=== PATIENT | female | born 1955 | race Caucasian/White ===

== ENCOUNTER 2019-05-30 14:49 | Outpatient (CLI) | payer OTHER, SELFPAY ==
--- NOTE | ~2019-05-30 | MM_ITS ---
EXAMINATION: MM screening [facility] BI w guy HISTORY: Screening mammogram TECHNIQUE: Craniocaudal and mediolateral oblique 3-D tomosynthesis images were obtained and synthetic 2-D images were generated. CAD analysis was submitted and interpreted. COMPARISON: 11/05/2015, 03/29/2014 BREAST PARENCHYMAL COMPOSITION: The breasts are heterogeneously dense, which may obscure small masses . FINDINGS: RIGHT BREAST: There is no evidence of suspicious mass, calcification, or architectural distortion to suggest malignancy. There has been no significant interval change. LEFT BREAST: There are grouped indeterminate calcifications in the posterior third of the upper outer quadrant of the breast 13 cm from the nipple. IMPRESSION: 1. Indeterminate left breast calcifications. 2. Magnification views are recommended. BI-RADS Category 0: Incomplete: Needs additional imaging evaluation. Reviewed, dictated and finalized at location A. PULLER
== END 2019-05-30 14:50 | disposition home or self-care (01) ==
LOC: ANHIMG 14:53
PROVIDERS: PCP Internal Medicine; Visit Provider Internal Medicine
DX: Z12.31 Encounter for screening mammogram for malignant neoplasm of breast (principal); R92.8 Other abnormal and inconclusive findings on diagnostic imaging of breast
CPT/HCPCS: 77063; 77067

== ENCOUNTER 2019-06-15 10:36 | Outpatient (CLI) | payer OTHER, SELFPAY ==
[2019-06-15 11:16] LABS: Alanine Aminotransferase 48 U/L (4-35); Albumin Level 4.1 g/dL (3.5-5.1); Alkaline Phosphatase 77 U/L (38-126); Aspartate Amino Transferase 42 U/L (14-36); Bilirubin,Total 0.4 mg/dL (0.2-1.3); Blood Urea Nitrogen 16 mg/dL (7-17); Carbon Dioxide 28 mmol/L (22-30); Chloride 102 mmol/L (98-107); Cholesterol 149 mg/dL (0-200); Estimated Glomerular Filt Rate > 60; Glucose 200 mg/dL (65-105); HDL Direct 45 mg/dL; Potassium 4.3 mmol/L (3.4-5.0); Sodium 137 mmol/L (137-145); Triglycerides 138 mg/dL (<150)
[2019-06-15 11:29] LABS: LDL Cholesterol Direct 105 mg/dL
[2019-06-15 14:02] LABS: Hemoglobin A1C 8.8 % (<5.7)
== END 2019-06-15 10:37 | disposition home or self-care (01) ==
PROVIDERS: PCP Internal Medicine; Visit Provider Nurse Practitioner
DX: E78.5 Hyperlipidemia, unspecified (principal); E11.9 Type 2 diabetes mellitus without complications
CPT/HCPCS: 36415; 80053; 80061; 83036

== ENCOUNTER 2019-06-20 12:33 | Outpatient (CLI) | payer OTHER, SELFPAY ==
--- NOTE | ~2019-06-20 | MM_ITS ---
EXAMINATION: MM diagnostic mammo unilat LT HISTORY: Indeterminate left breast calcifications on screening mammogram TECHNIQUE: Additional images of the left breast were performed. CAD analysis was submitted and interp reted. COMPARISON: 05/30/2019, 11/05/2015, 03/29/2014 FINDINGS: Coarse heterogeneous calcifications in the posterior third of the upper outer quadrant of t he breast at the 1:00 location 13 cm from the nipple. IMPRESSION: 1. Suspicious left breast calcifications. 2. Stereotactic biopsy is recommended. BI-RADS category 4, suspicious findings. Reviewed, dictated and finalized at location A.
== END 2019-06-20 12:34 | disposition home or self-care (01) ==
LOC: ANHIMG 12:35
PROVIDERS: PCP Internal Medicine; Visit Provider Internal Medicine
DX: R92.8 Other abnormal and inconclusive findings on diagnostic imaging of breast (principal)
CPT/HCPCS: 77065

== ENCOUNTER 2019-06-26 10:13 | Outpatient (CLI) | payer OTHER, SELFPAY ==
--- NOTE | ~2019-06-26 | MM_ITS ---
MM stereotactic bx LT, MM post biopsy invasive LT, MM stereotactic specimen LT EXAMINATION: MM stereotactic bx LT, MM post biopsy invasive LT, MM stereotactic specimen LT INDICATION: Abnormal calcifications in the left breast. Stereotactic core biopsy is requested evalua te for malignancy.] TECHNIQUE AND FINDINGS: The risks and potential benefits of the procedure were discussed with the patient and written informe d consent was obtained. The patient was placed in the prone position clustered at the table with the left breast in craniocaudal compression, and the area of interest was localized and targeted utilizi ng digital imaging with stereotaxis. After sterile preparation of the skin, 1% lidocaine was utilized for local anesthesia at the skin pun cture site and 1% lidocaine with epinephrine was utilized for deeper local anesthesia/is about the bi opsy site. A 9G Tapomat vacuum assisted biopsy needle was advanced to the level of the calcification o f interest from a cephalad approach utilizing stereotactic guidance and a total of 6 tissue core biop sies were obtained. A specimen radiograph demonstrates that the calcifications of interest are included within the tissue cores. A tissue marker clip was then placed at the biopsy site. The needle was removed and hemosta sis was achieved. The patient tolerated the procedure well and there is no evidence of significant i mmediate complication. The patient was given verbal as well as written postprocedural instructions p rior to discharge from the department. Tissue cores were submitted to surgical pathology for histolo gic analysis. A 2-view left unilateral digital mammogram was obtained post procedure and this demonstrates that the tissue marker clip is in expected position.] IMPRESSION: 1. Successful stereotactic biopsy of calcifications in the upper outer quadrant of the left breast, followed by tissue marker clip placement. Please refer to pathology report for histologic analysis. Reviewed, dictated and finalized at location A. IMPRESSION: 1. Successful stereotactic biopsy of calcifications in the upper outer quadran t of the left breast, followed by tissue marker clip placement. Please refer t o pathology report for histologic analysis. IMPRESSION: 1. Successful stereotactic biopsy of calcifications in the upper outer quadran t of the left breast, followed by tissue marker clip placement. Please refer t o pathology report for histologic analysis.
== END 2019-06-26 10:14 | disposition home or self-care (01) ==
PROVIDERS: PCP Internal Medicine; Visit Provider Internal Medicine
DX: R92.8 Other abnormal and inconclusive findings on diagnostic imaging of breast (principal); D24.2 Benign neoplasm of left breast
CPT/HCPCS: 19081; 88305; A4648

== ENCOUNTER 2019-10-16 10:10 | Outpatient (CLI) | payer OTHER, SELFPAY ==
[2019-10-16 10:50] LABS: Basophils Absolute Auto 0.1 K/mm3 (0.0-0.1); Basophils Percent Auto 0.6 % (0.2-1.2); Eosinophils Absolute Auto 0.1 K/mm3 (0-0.3); Eosinophils Percent Auto 1.3 % (0-4.4); Hematocrit 34.5 % (37.0-47.0); Hemoglobin 10.7 g/dL (12.0-15.0); Immature Granulocyte Absolute 0.04 K/mm3 (0.00-0.031); Immature Granulocyte Percent A 0.5 % (0-0.5); Lymphocytes Absolute Auto 2.04 K/mm3 (0.9-3.2); Lymphocytes Percent Auto 23.6 % (18.3-44.2); Mean Corpuscular Hemoglobin 25.1 pg (26-34); Mean Corpuscular Volume 80.8 fl (80-100); Mean Platelet Volume 10.4 fl (7.4-10.4); Monocytes Absolute Auto 0.5 K/mm3 (0.1-0.6); Monocytes Percent Auto 5.6 % (2.6-8.5); Neutrophils Absolute Auto 5.9 K/mm3 (1.3-6.7); Neutrophils Percent Auto 68.4 % (45.5-73.1); Platelet Count Result 224 k/mm3 (150-375); Red Blood Count 4.27 M/mm3 (4.2-5.4); Red Cell Distribution Width 13.6 % (11.5-14.5); White Blood Count 8.6 K/mm3 (4.5-10.0)
[2019-10-16 10:59] LABS: Hemoglobin A1C 8.3 % (<5.7)
[2019-10-16 11:06] LABS: Alanine Aminotransferase 33 U/L (4-35); Albumin Level 4.4 g/dL (3.5-5.1); Alkaline Phosphatase 79 U/L (38-126); Aspartate Amino Transferase 31 U/L (14-36); Bilirubin,Total 0.4 mg/dL (0.2-1.3); Blood Urea Nitrogen 18 mg/dL (7-17); Calcium 9.1 mg/dL (8.4-10.2); Carbon Dioxide 28 mmol/L (22-30); Chloride 100 mmol/L (98-107); Cholesterol 138 mg/dL (0-200); Estimated Glomerular Filt Rate 56; Glucose 149 mg/dL (65-105); HDL Direct 36 mg/dL; Potassium 4.3 mmol/L (3.4-5.0); Sodium 136 mmol/L (137-145); Triglycerides 156 mg/dL (<150)
[2019-10-16 11:17] LABS: LDL Cholesterol Direct 74 mg/dL
[2019-10-16 11:49] LABS: Creatinine Urine 133.2 mg/dL
[2019-10-16 12:05] LABS: Iron 59 ug/dL (37-170)
[2019-10-16 12:14] LABS: Percent Iron Saturation 14 % (20-50)
[2019-10-16 13:19] LABS: MALB Creatinine Ratio < 4.5 mg/g (0-30); Microalbumin Urine Random < 6.0 mg/L (0-16.7)
== END 2019-10-16 10:11 | disposition home or self-care (01) ==
LOC: ANHLAB 10:12
PROVIDERS: PCP Internal Medicine; Visit Provider Internal Medicine
DX: D50.9 Iron deficiency anemia, unspecified (principal); I10 Essential (primary) hypertension; E78.5 Hyperlipidemia, unspecified; E11.9 Type 2 diabetes mellitus without complications; Z79.899 Other long term (current) drug therapy
CPT/HCPCS: 36415; 80053; 80061; 82043; 83036; 83540; 83550; 85025

== ENCOUNTER 2020-02-14 12:40 | Outpatient (RCR) | payer OTHER, SELFPAY | END 2020-02-14 23:59 | disposition home or self-care (01) | LOC: ANHAUDIO 12:40 | PROVIDERS: PCP Internal Medicine; Visit Provider Internal Medicine | DX: Z46.1 Encounter for fitting and adjustment of hearing aid (principal) | CPT/HCPCS: V5014 ==

== ENCOUNTER 2020-02-17 08:21 | Outpatient (CLI) | payer OTHER, SELFPAY ==
[2020-02-17 09:04] LABS: Alanine Aminotransferase 29 U/L (4-35); Albumin Level 4.1 g/dL (3.5-5.1); Alkaline Phosphatase 78 U/L (38-126); Anion Gap 8 mmol/L (8-16); Aspartate Amino Transferase 27 U/L (14-36); Bilirubin,Total 0.4 mg/dL (0.2-1.3); Blood Urea Nitrogen 15 mg/dL (7-17); Calcium 9.1 mg/dL (8.4-10.2); Carbon Dioxide 33 mmol/L (22-30); Chloride 100 mmol/L (98-107); Cholesterol 134 mg/dL (0-200); Estimated Glomerular Filt Rate > 60; Glucose 137 mg/dL (65-105); HDL Direct 39 mg/dL; Potassium 4.1 mmol/L (3.4-5.0); Sodium 141 mmol/L (137-145); Triglycerides 171 mg/dL (<150)
[2020-02-17 09:15] LABS: LDL Cholesterol Direct 67 mg/dL
[2020-02-17 09:30] LABS: Hemoglobin A1C 7.2 % (<5.7)
== END 2020-02-17 08:22 | disposition home or self-care (01) ==
PROVIDERS: PCP Internal Medicine; Visit Provider Nurse Practitioner
DX: E78.5 Hyperlipidemia, unspecified (principal); E11.9 Type 2 diabetes mellitus without complications; Z79.84 Long term (current) use of oral hypoglycemic drugs
CPT/HCPCS: 36415; 80053; 80061; 83036

== ENCOUNTER 2020-03-26 09:34 | Outpatient (CLI) | payer OTHER, SELFPAY ==
--- NOTE | ~2020-03-26 | XR_ITS ---
EXAMINATION: XR tibia fibula RT 2V DATE: 03/26/2020 10:10 INDICATION: Right lower leg pain. TECHNIQUE: Anteroposterior and lateral views of the right tibia and fibula were obtained. COMPARISON: 12/15/2016 FINDINGS: Alignment is normal. No fracture. Mild to moderate tricompartmental osteoarthritis at the right knee with medial compartment predominance on prior dedicated right knee radiographs. Normal joint space at the right ankle and hindfoot. No cortical erosions or periosteal reaction. Soft tissues are unremark able. IMPRESSION: 1. Mild to moderate tricompartmental osteoarthritis at the right knee. Otherwise unremarkable right t ibia/fibular radiographs. Reviewed, dictated and finalized at location B. T DECORATOR IMPRESSION: 1. Mild to moderate tricompartmental osteoarthritis at the right knee. Otherwis e unremarkable right tibia/fibular radiographs.
[2020-03-26 10:11] LABS: Hemoglobin 10.3 g/dL (12.0-15.0)
== END 2020-03-26 09:35 | disposition home or self-care (01) ==
PROVIDERS: PCP Internal Medicine; Visit Provider Internal Medicine
DX: M79.606 Pain in leg, unspecified (principal); D64.9 Anemia, unspecified; R53.83 Other fatigue; M17.11 Unilateral primary osteoarthritis, right knee
CPT/HCPCS: 36415; 73590; 84443; 85014; 85018

== ENCOUNTER 2020-09-02 12:42 | Outpatient (CLI) | payer OTHER, SELFPAY ==
[2020-09-02 13:24] LABS: Hemoglobin 11.1 g/dL (12.0-15.0)
[2020-09-02 13:34] LABS: Hemoglobin A1C 9.5 % (<5.7)
[2020-09-02 13:45] LABS: Alanine Aminotransferase 42 U/L (4-35); Albumin Level 4.3 g/dL (3.5-5.1); Alkaline Phosphatase 79 U/L (38-126); Anion Gap 8 mmol/L (8-16); Aspartate Amino Transferase 43 U/L (14-36); Bilirubin,Total 0.2 mg/dL (0.2-1.3); Blood Urea Nitrogen 17 mg/dL (7-17); Calcium 9.1 mg/dL (8.4-10.2); Carbon Dioxide 27 mmol/L (22-30); Chloride 102 mmol/L (98-107); Estimated Glomerular Filt Rate 56; Glucose 300 mg/dL (65-105); Potassium 4.3 mmol/L (3.4-5.0); Sodium 137 mmol/L (137-145)
[2020-09-02 14:54] LABS: Iron 48 ug/dL (37-170)
[2020-09-02 15:03] LABS: Percent Iron Saturation 12 % (20-50)
== END 2020-09-02 12:43 | disposition home or self-care (01) ==
PROVIDERS: PCP Internal Medicine; Visit Provider Internal Medicine
DX: E11.9 Type 2 diabetes mellitus without complications (principal); I10 Essential (primary) hypertension; D50.9 Iron deficiency anemia, unspecified; D64.9 Anemia, unspecified
CPT/HCPCS: 36415; 80053; 82728; 83036; 83540; 83550; 85014; 85018

== ENCOUNTER 2020-10-07 13:53 | Outpatient (CLI) | payer OTHER, SELFPAY | END 2020-10-07 13:54 | disposition home or self-care (01) | LOC: ANHAUDASC 13:53 | PROVIDERS: PCP Internal Medicine; Visit Provider Nurse Practitioner | DX: H90.3 Sensorineural hearing loss, bilateral (principal) | CPT/HCPCS: 92557; 92567; 92593 ==

== ENCOUNTER 2020-11-12 16:10 | Outpatient (CLI) | payer OTHER, SELFPAY ==
[2020-11-12 17:12] LABS: Hematocrit 38.7 % (37.0-47.0); Hemoglobin 11.7 g/dL (12.0-15.0)
[2020-11-12 18:47] LABS: Iron 48 ug/dL (37-170)
[2020-11-12 18:56] LABS: Percent Iron Saturation 12 % (20-50)
== END 2020-11-12 16:11 | disposition home or self-care (01) ==
LOC: ANHLAB 16:12
PROVIDERS: PCP Internal Medicine; Visit Provider Nurse Practitioner
DX: D50.9 Iron deficiency anemia, unspecified (principal)
CPT/HCPCS: 36415; 83540; 83550; 85014; 85018

== ENCOUNTER 2020-12-24 13:37 | Outpatient (CLI) | payer OTHER, SELFPAY ==
--- NOTE | ~2020-12-24 | CT_ITS ---
EXAMINATION: CT sinus wo con DATE: 12/24/2020 13:57 INDICATION: Acute sinusitis, unspecified TECHNIQUE: Computed tomography (CT) of the paranasal sinuses was performed without intravenous contra st. The dose-length product (DLP) was 276.23 mGy-cm. Iterative reconstruction was used. COMPARISON: 06/10/2017 FINDINGS: There is normal development and pneumatization of the paranasal sinuses. The frontal, sphen oid, ethmoid, and maxillary sinuses are clear. The bilateral ostiomeatal complexes are patent. Visual ized soft tissues are unremarkable. The nasal septum is midline. IMPRESSION: 1. Unremarkable paranasal sinuses. Reviewed, dictated and finalized at location A.
== END 2020-12-24 13:38 | disposition home or self-care (01) ==
PROVIDERS: PCP Internal Medicine; Visit Provider Otolaryngology
DX: J01.90 Acute sinusitis, unspecified (principal)
CPT/HCPCS: 70486

== ENCOUNTER 2021-01-27 10:15 | Outpatient (CLI) | payer OTHER, SELFPAY ==
[2021-01-27 11:10] LABS: Hemoglobin A1C 7.4 % (<5.7)
[2021-01-27 11:16] LABS: Alanine Aminotransferase 24 U/L (4-35); Albumin Level 4.5 g/dL (3.5-5.1); Alkaline Phosphatase 65 U/L (38-126); Anion Gap 8 mmol/L (8-16); Aspartate Amino Transferase 23 U/L (14-36); Bilirubin,Total 0.5 mg/dL (0.2-1.3); Blood Urea Nitrogen 26 mg/dL (7-17); Calcium 9.5 mg/dL (8.4-10.2); Carbon Dioxide 30 mmol/L (22-30); Chloride 102 mmol/L (98-107); Cholesterol 169 mg/dL (0-200); Estimated Glomerular Filt Rate 50; Glucose 145 mg/dL (65-110); HDL Direct 43 mg/dL; Potassium 4.6 mmol/L (3.4-5.0); Sodium 140 mmol/L (137-145); Triglycerides 200 mg/dL (<150)
[2021-01-27 11:27] LABS: LDL Cholesterol Direct 91 mg/dL
== END 2021-01-27 10:16 | disposition home or self-care (01) ==
PROVIDERS: PCP Internal Medicine; Visit Provider Nurse Practitioner
DX: E78.5 Hyperlipidemia, unspecified (principal); E11.9 Type 2 diabetes mellitus without complications
CPT/HCPCS: 36415; 80053; 80061; 83036

== ENCOUNTER 2021-02-03 14:20 | Outpatient (CLI) | payer OTHER, SELFPAY ==
--- NOTE | ~2021-02-03 | XR_ITS ---
XR knee RT 3V 02/03/2021 14:45 Indication: Right knee pain Procedure: 3 views right knee Comparison: 12/15/2016 Findings: There is moderate tricompartment osteoarthritis of the right knee. No fracture, subluxation or dislocation. No significant joint effusion. Impression: 1: Moderate osteoarthritis of the right knee. Reviewed, dictated and finalized at location A. Impression: 1: Moderate osteoarthritis of the right knee.
--- NOTE | ~2021-02-03 | XR_ITS ---
XR knee LT 3V 02/03/2021 14:45 Indication: Left knee pain Procedure: 3 views left knee Comparison: 05/10/2015 Findings: There is mild tricompartment osteoarthritis of the left knee. No fracture, subluxation or d islocation. No significant joint effusion. Impression: 1: Mild osteoarthritis of the left knee. Reviewed, dictated and finalized at location A. Impression: 1: Mild osteoarthritis of the left knee.
== END 2021-02-03 14:21 | disposition home or self-care (01) ==
LOC: ANHIMG 14:20
PROVIDERS: PCP Internal Medicine; Visit Provider Nurse Practitioner
DX: S89.92XA Unspecified injury of left lower leg, initial encounter (principal); M17.0 Bilateral primary osteoarthritis of knee
CPT/HCPCS: 73562

== ENCOUNTER 2021-02-10 14:27 | Outpatient (RCR) | payer OTHER, SELFPAY | END 2021-05-11 23:59 | disposition home or self-care (01) | LOC: ANHAUDASC 14:27 | PROVIDERS: PCP Internal Medicine; Visit Provider Internal Medicine | DX: Z46.1 Encounter for fitting and adjustment of hearing aid (principal) | CPT/HCPCS: V5014 ==

== ENCOUNTER 2021-03-19 08:13 | Outpatient (CLI) | payer OTHER, SELFPAY ==
--- NOTE | ~2021-03-19 | MM_ITS ---
EXAMINATION: MM screening [facility] BI w guy HISTORY: Screening TECHNIQUE: Craniocaudal and mediolateral oblique 3-D tomosynthesis images were obtained and synthetic 2-D images were generated. CAD analysis was submitted and interpreted. COMPARISON: Comparison to multiple prior studies sequentially, with oldest reviewed study dated 11/04. BREAST PARENCHYMAL COMPOSITION: . The breasts are heterogenously dense, which may obscure small rigo s FINDINGS: There is no evidence of suspicious mass, calcification, or architectural distortion to sugg est malignancy in either breast. There has been no suspicious interval change. IMPRESSION: 1. No mammographic evidence of malignancy. 2. Recommend routine screening mammography in one year. BI-RADS Category 1: Negative Reviewed, dictated and finalized at location A. E SHOE REBUILDER
== END 2021-03-19 08:14 | disposition home or self-care (01) ==
LOC: ANHIMG 08:14
PROVIDERS: PCP Internal Medicine; Visit Provider Nurse Practitioner
DX: Z12.31 Encounter for screening mammogram for malignant neoplasm of breast (principal)
CPT/HCPCS: 77063; 77067

== ENCOUNTER → 2021-04-28 00:50 | Outpatient (CLI) | payer OTHER, SELFPAY ==
[2021-04-28 15:59] LABS: Influenza A QL RT-PCR Negative (Negative); Influenza B QL RT-PCR Negative (Negative); SARS-CoV-2 RNA PCR Negative
== END ==
PROVIDERS: PCP Internal Medicine; Visit Provider Nurse Practitioner
DX: R68.89 Other general symptoms and signs (principal); Z20.822 Contact with and (suspected) exposure to COVID-19
CPT/HCPCS: 87502; C9803; U0003; U0005

== ENCOUNTER 2021-09-26 09:37 | Outpatient (CLI) | payer OTHER, SELFPAY ==
[2021-09-26 09:51] LABS: Hematocrit 40.5 % (37.0-47.0); Hemoglobin 12.7 g/dL (12.0-15.0); Mean Corpuscular HGB Conc 31.4 g/dl (32-36); Mean Corpuscular Hemoglobin 26.5 pg (26-34); Mean Corpuscular Volume 84.6 fl (80-100); Mean Platelet Volume 10.3 fl (7.4-10.4); Platelet Count Result 223 k/mm3 (150-375); Red Blood Count 4.79 M/mm3 (4.2-5.4); Red Cell Distribution Width 14.4 % (11.5-14.5); White Blood Count 9.7 K/mm3 (4.5-10.0)
[2021-09-26 10:06] LABS: Alanine Aminotransferase 33 U/L (6-35); Albumin Level 4.6 g/dL (3.5-5.1); Alkaline Phosphatase 71 U/L (38-126); Anion Gap 6 mmol/L (8-16); Aspartate Amino Transferase 25 U/L (14-36); Bilirubin,Total 0.6 mg/dL (0.2-1.3); Blood Urea Nitrogen 25 mg/dL (7-17); Calcium 9.2 mg/dL (8.4-10.2); Carbon Dioxide 31 mmol/L (22-30); Chloride 103 mmol/L (98-107); Cholesterol 176 mg/dL (0-200); Estimated Glomerular Filt Rate 56; Glucose 164 mg/dL (65-110); HDL Direct 42 mg/dL; Potassium 4.7 mmol/L (3.4-5.0); Sodium 140 mmol/L (137-145); Triglycerides 211 mg/dL (<150)
[2021-09-26 10:08] LABS: Hemoglobin A1C 7.4 % (<5.7)
[2021-09-26 10:17] LABS: LDL Cholesterol Direct 91 mg/dL
[2021-09-26 10:45] LABS: Iron 74 ug/dL (37-170); Percent Iron Saturation 19 % (20-50)
== END 2021-09-26 09:38 | disposition home or self-care (01) ==
LOC: ANHLAB 09:38
PROVIDERS: PCP Internal Medicine; Visit Provider Nurse Practitioner
DX: E78.5 Hyperlipidemia, unspecified (principal); D64.9 Anemia, unspecified; E11.9 Type 2 diabetes mellitus without complications
CPT/HCPCS: 36415; 80053; 80061; 83036; 83540; 83550; 85027

== ENCOUNTER 2021-10-30 09:00 | Outpatient (RCR) | payer OTHER, SELFPAY | END 2022-01-13 23:59 | disposition home or self-care (01) | LOC: ANHAUDASC 09:00 | PROVIDERS: PCP Internal Medicine; Visit Provider Internal Medicine | DX: Z46.1 Encounter for fitting and adjustment of hearing aid (principal) | CPT/HCPCS: 99199; V5014 ==

== ENCOUNTER 2022-04-14 12:26 | Emergency (ER) | payer OTHER, SELFPAY ==
[2022-04-14 12:41] VITALS: BP 107/55; PULSE 64; RESP 20; TEMP 36.2; O2SAT 98
--- NOTE | 2022-04-14 12:52 | ED.URI ---
HPI - URI/Sore Throat General Chief Complaint: Upper Respiratory Infection Stated Complaint: headache,cough,sorethroat Time Seen by Provider: 04/14/22 12:52 Source: patient Mode of arrival: ambulatory Limitations: no limitations History of Present Illness HPI Narrative: 66-year-old female presents with complaint sinus congesti/on pressure, postnasal drainage, dizziness for 6 days. Today began with dry cough. Called her PCP and was told to get a flu and COVID test. Afebrile. reports fatigue, no body aches. Denies nausea vomiting diarrhea. All systems reviewed and negative except as noted above. Related Data Home Medications Medication Instructions Recorded Confirmed fluticasone propionate 50 1 spray intranasal Q12H 04/11/19 04/14/22 mcg/actuation nasal spray,suspension (Flonase Allergy Relief) fexofenadine 180 mg tablet 180 mg PO DAILY 10/17/19 04/14/22 (Anastasia Allergy) dicyclomine 10 mg capsule 10 mg PO DAILY 09/03/20 04/14/22 dapagliflozin 10 mg tablet 10 mg PO DAILY 11/21/20 04/14/22 (Farxiga) naproxen sodium 220 mg capsule 220 mg PO BID PRN Pain 02/12/21 04/14/22 (Aleve) omeprazole 10 mg capsule,delayed 10 mg PO DAILY 08/04/21 04/14/22 release Allergies Allergy/AdvReac Type Severity Reaction Status Date / Time celecoxib Allergy Unknown unknown Verified 04/14/22 12:41 ciprofloxacin Allergy Unknown unknown Verified 04/14/22 12:41 codeine Allergy Unknown unknown Verified 04/14/22 12:41 Iodinated Contrast Media Allergy Unknown unknown Verified 04/14/22 12:41 iodine Allergy Unknown unknown Verified 04/14/22 12:41 latex Allergy Unknown unknown Verified 04/14/22 12:41 Sulfa (Sulfonamide Allergy Unknown unknown Verified 04/14/22 12:41 Antibiotics) Review of Systems Review of Systems: CONSTITUTIONAL: Denies fever, chills, or sweats. EYES: Denies visual changes, redness, or discharge. ENT: Report rhinorrhea, congestion, sinus congestion, dizziness. Denies sore throat, or otalgia. CARDIOVASCULAR: Denies chest pain, palpitations, or edema. RESPIRATORY: Denies cough or dyspnea. GASTROINTESTINAL: Denies abdominal pain, nausea, vomiting, or diarrhea. GENITOURINARY: Denies dysuria or hematuria. SKIN: Denies rash or itching. MUSCULOSKELETAL: Denies back pain, joint pain, or myalgia. NEUROLOGIC: Denies headache, numbness, or weakness. PSYCHIATRIC: Denies anxiety or depression. All other systems reviewed are negative, except as documented in HPI. PMFSH Past Medical History Medical History Acute sinusitis with symptoms > 10 days Degenerative arthritis of knee, bilateral Hemoglobin A1C between 7% and 9% indicating borderline diabetic control A1c = 7.4 on 01/27/21 Surgical History Surgical History H/O: hysterectomy History of cholecystectomy Family History Family History Mother Family history of malignant melanoma Family history of lung cancer Family history of malignant neoplasm of brain Hypertension Grandparent Family history of lung cancer Family history of malignant neoplasm of bone Family history of malignant neoplasm of breast Family history of congestive heart failure Hypertension Father Acute myocardial infarction Diabetes mellitus Hypertension Other Family history of coronary artery disease Social History Social History Smoking status: Never smoker Second hand tobacco smoke exposure: No Alcohol intake: never Substance use: never Gender identity (if verbalized by the patient): Female Comments At time of signature, agree with nursing past medical, surgical, social and family history. There is no relevant family history pertinent to the presenting complaint. Exam Narrative: GENERAL: This is a well-nourished, well-d
== END 2022-04-14 13:15 | disposition home or self-care (01) ==
PROVIDERS: Emergency Provider Nurse Practitioner Family; PCP Internal Medicine
DX: J01.90 Acute sinusitis, unspecified (principal); Z20.822 Contact with and (suspected) exposure to COVID-19; M17.0 Bilateral primary osteoarthritis of knee
CPT/HCPCS: 87426; 99213; C9803; G0463

== ENCOUNTER 2022-05-04 09:47 | Outpatient (CLI) | payer OTHER, SELFPAY ==
[2022-05-04 10:12] LABS: Hematocrit 40.2 % (37.0-47.0); Hemoglobin 12.9 g/dL (12.0-15.0)
[2022-05-04 10:19] LABS: Alanine Aminotransferase 33 U/L (6-35); Albumin Level 4.3 g/dL (3.5-5.1); Alkaline Phosphatase 73 U/L (38-126); Anion Gap 5 mmol/L (8-16); Aspartate Amino Transferase 23 U/L (14-36); Bilirubin,Total 0.6 mg/dL (0.2-1.3); Blood Urea Nitrogen 18 mg/dL (7-17); Calcium 9.1 mg/dL (8.4-10.2); Carbon Dioxide 29 mmol/L (22-30); Chloride 101 mmol/L (98-107); Cholesterol 155 mg/dL (0-200); Estimated Glomerular Filt Rate > 60; Glucose 155 mg/dL (65-110); HDL Direct 47 mg/dL; Potassium 4.2 mmol/L (3.4-5.0); Sodium 135 mmol/L (137-145); Triglycerides 188 mg/dL (<150)
[2022-05-04 10:23] LABS: Hemoglobin A1C 7.8 % (<5.7)
[2022-05-04 10:30] LABS: LDL Cholesterol Direct 68 mg/dL
[2022-05-04 11:11] LABS: Microalbumin Urine Random 7.3 mg/L (0-16.7)
[2022-05-04 11:14] LABS: Creatinine Urine 96.9 mg/dL; MALB Creatinine Ratio 7.5 mg/g (0-30)
== END 2022-05-04 09:48 | disposition home or self-care (01) ==
LOC: ANHLAB 09:49
PROVIDERS: PCP Internal Medicine; Visit Provider Internal Medicine
DX: E11.65 Type 2 diabetes mellitus with hyperglycemia (principal); I10 Essential (primary) hypertension; D64.9 Anemia, unspecified; E78.5 Hyperlipidemia, unspecified
CPT/HCPCS: 36415; 80053; 80061; 82043; 83036; 85014; 85018

== ENCOUNTER 2022-06-08 12:48 | Outpatient (RCR) | payer OTHER, SELFPAY | END 2022-06-08 23:59 | disposition home or self-care (01) | LOC: ANHAUDIO 12:48 | PROVIDERS: PCP Internal Medicine; Visit Provider Internal Medicine | DX: Z46.1 Encounter for fitting and adjustment of hearing aid (principal) | CPT/HCPCS: 92593 ==

== ENCOUNTER 2022-07-25 11:37 | Outpatient (CLI) | payer MEDICARE, MEDICAID, SELFPAY ==
--- NOTE | ~2022-07-25 | MM_ITS ---
EXAMINATION: MM screening [facility] BI w guy HISTORY: Screening mammogram TECHNIQUE: Craniocaudal and mediolateral oblique 3-D tomosynthesis images were obtained and synthetic 2-D images were generated. CAD analysis was submitted and interpreted. COMPARISON: 03/19/2021, 06/20/2019, 05/30/2019 BREAST PARENCHYMAL COMPOSITION: There are scattered areas of fibroglandular density. FINDINGS: Stable bilateral breast masses are considered benign given the lack of interval change. Als o noted are stable bilateral breast calcifications. No suspicious mass, calcification, or architectur al distortion are identified in either breast to suggest malignancy. There has been no suspicious int erval change. IMPRESSION: 1. No mammographic evidence of malignancy. 2. Recommend routine screening mammography in one year. BI-RADS Category 2: Benign finding(s). Reviewed, dictated and finalized at location A.
== END 2022-07-25 11:38 | disposition home or self-care (01) ==
LOC: ANHIMG 11:40
PROVIDERS: PCP Internal Medicine; Visit Provider Internal Medicine
DX: Z12.31 Encounter for screening mammogram for malignant neoplasm of breast (principal)
CPT/HCPCS: 77063; 77067

== ENCOUNTER 2022-09-30 09:39 | Outpatient (CLI) | payer MEDICARE, SELFPAY ==
[2022-09-30 10:22] LABS: Alanine Aminotransferase 29 U/L (6-35); Albumin Level 4.3 g/dL (3.5-5.1); Alkaline Phosphatase 86 U/L (38-126); Anion Gap 8 mmol/L (8-16); Aspartate Amino Transferase 22 U/L (14-36); Bilirubin,Total 0.6 mg/dL (0.2-1.3); Blood Urea Nitrogen 14 mg/dL (7-17); Calcium 8.4 mg/dL (8.4-10.2); Carbon Dioxide 30 mmol/L (22-30); Chloride 102 mmol/L (98-107); Estimated Glomerular Filt Rate > 60; Glucose 149 mg/dL (65-110); Potassium 3.7 mmol/L (3.4-5.0); Sodium 140 mmol/L (137-145)
[2022-09-30 10:34] LABS: Hemoglobin A1C 7.6 % (<5.7)
== END 2022-09-30 09:40 | disposition home or self-care (01) ==
LOC: ANHLAB 09:41
PROVIDERS: PCP Family Medicine; Visit Provider Nurse Practitioner
DX: E11.9 Type 2 diabetes mellitus without complications (principal); I10 Essential (primary) hypertension
CPT/HCPCS: 36415; 80053; 83036

== ENCOUNTER 2022-11-20 13:11 | Outpatient (CLI) | payer MEDICARE, SELFPAY ==
[2022-11-20 16:57] LABS: Appearance Urine Cloudy (Clear); Bacteria Urine None Seen /hpf; Bilirubin Urine Negative (Negative); Blood Urine 3+ (Negative); Color Urine Yellow (Yellow); Glucose Urine UA 3+ mg/dL (Negative); Ketones Urine Trace mg/dL (Negative); Leukocyte Esterase Ur 1+ LEU/UL (Negative); Nitrate Urine Negative (Negative); Non Pathogenic Casts 0-2; Protein Urine 1+ mg/dL (Negative); RBC Urine >100 /hpf (0-2); Specific Grav Ur 1.033 (1.001-1.035); Squamous Epithelial Cell Urine Occasional /hpf (Few); WBC Urine >100 /hpf; pH Urine 5.5 (5.0-9.0)
[2022-11-20 16:58] LABS: Add Urine Microscopic? YES
== END 2022-11-20 13:12 | disposition home or self-care (01) ==
PROVIDERS: PCP Family Medicine; Visit Provider Nurse Practitioner
DX: R30.0 Dysuria (principal)
CPT/HCPCS: 81001; 87086; 87088

== ENCOUNTER 2023-01-08 12:50 | Outpatient (CLI) | payer MEDICARE, SELFPAY ==
[2023-01-08 15:21] LABS: Appearance Urine Cloudy (Clear); Bacteria Urine None Seen /hpf; Bilirubin Urine Negative (Negative); Blood Urine 3+ (Negative); Color Urine Yellow (Yellow); Glucose Urine UA 3+ mg/dL (Negative); Ketones Urine Negative (Negative); Leukocyte Esterase Ur 2+ LEU/UL (Negative); Need Manual Microscopic Reviewed; Nitrate Urine Negative (Negative); Non Pathogenic Casts 0-2; Protein Urine 1+ mg/dL (Negative); RBC Urine >100 /hpf (0-2); Specific Grav Ur 1.034 (1.001-1.035); Squamous Epithelial Cell Urine None seen /hpf (Few); Urobilinogen Urine 0.2 mg/dL (<2.0); WBC Urine >100 /hpf
[2023-01-08 15:22] LABS: Add Urine Microscopic? YES
== END 2023-01-08 12:51 | disposition home or self-care (01) ==
LOC: ANHLAB 12:52
PROVIDERS: PCP Nurse Practitioner; Visit Provider Nurse Practitioner
DX: R39.9 Unspecified symptoms and signs involving the genitourinary system (principal)
CPT/HCPCS: 81001; 87086; 87088

== ENCOUNTER 2023-01-28 15:27 | Outpatient (NON) | payer MEDICARE, MEDICAID, SELFPAY | END 2023-01-28 15:28 | disposition home or self-care (01) | LOC: ANHLAB 15:28 | PROVIDERS: PCP Nurse Practitioner; Visit Provider Nurse Practitioner | DX: D23.4 Other benign neoplasm of skin of scalp and neck (principal) | CPT/HCPCS: 88305 ==

== ENCOUNTER 2023-03-29 14:00 | Outpatient (CLI) | payer MEDICARE, MEDICAID, SELFPAY ==
--- NOTE | ~2023-03-29 | CT_ITS ---
EXAMINATION: CT sinus wo con DATE: 03/29/2023 14:18 INDICATION: Chronic sinusitis TECHNIQUE: Computed tomography (CT) of the paranasal sinuses was performed without intravenous contra st. The dose-length product was 344.27 mGy-cm. Automated exposure control and iterative reconstructio n technique were employed. COMPARISON: CT dated 12/24/2020 FINDINGS: There is mucosal thickening of the left maxillary sinus with occlusion of the ostiomeatal u nit. No significant mucoperiosteal reaction. No nasal septal deviation. Right ostiomeatal unit is pat ent. Mastoids are pneumatized. IMPRESSION: 1. Moderate left maxillary sinusitis. Reviewed, dictated and finalized at location A. SCREEN PRINTER MACHINE
== END 2023-03-29 14:01 | disposition home or self-care (01) ==
PROVIDERS: PCP Nurse Practitioner; Visit Provider Otolaryngology
DX: J32.0 Chronic maxillary sinusitis (principal)
CPT/HCPCS: 70486

== ENCOUNTER 2023-06-02 11:19 | Outpatient (CLI) | payer MEDICARE, MEDICAID, SELFPAY ==
--- NOTE | 2023-06-02 11:35 | ECG_ITS ---
Measurements Intervals [place] Rate: 73 P: 6 [place]: 163 QRS: -24 QRSD: 97 T: -17 QT: 382 QTc: 422 Interpretive Statements SINUS RHYTHM VOLTAGE CRITERIA FOR LVH POSSIBLE ANTERIOR MYOCARDIAL INFARCTION [30 ms Q WAVE IN V3/V4, OR R < 0.2 mV IN V4], OF INDETERMINATE AGE ABNORMAL ECG NO PREVIOUS ECG AVAILABLE FOR COMPARISON Electronically Signed On 06-02-2023 16:27:32 MUSIC COMPOSER by Mati Yao M.D.
[2023-06-02 11:57] LABS: Hematocrit 41.8 % (37.0-47.0)
[2023-06-02 12:10] LABS: Anion Gap 7 mmol/L (8-16); Blood Urea Nitrogen 16 mg/dL (7-17); Calcium 9.3 mg/dL (8.4-10.2); Carbon Dioxide 25 mmol/L (22-30); Chloride 102 mmol/L (98-107); Estimated Glomerular Filt Rate 56; Glucose 329 mg/dL (65-110); Potassium 4.2 mmol/L (3.4-5.0); Sodium 134 mmol/L (137-145)
== END 2023-06-02 11:20 | disposition home or self-care (01) ==
LOC: ANHSURGERY 11:24
PROVIDERS: Anesthesiology; PCP Nurse Practitioner; Visit Provider Otolaryngology
DX: Z01.818 Encounter for other preprocedural examination (principal); D64.9 Anemia, unspecified; E11.9 Type 2 diabetes mellitus without complications; I10 Essential (primary) hypertension; R93.1 Abnormal findings on diagnostic imaging of heart and coronary circulation; R94.31 Abnormal electrocardiogram [ECG] [EKG]
CPT/HCPCS: 36415; 80048; 85014; 85018; 93005

== ENCOUNTER 2023-06-16 13:25 | Emergency (ER) | payer MEDICARE, SELFPAY ==
--- NOTE | 2023-06-16 13:41 | ED.CHESTPAIN ---
HPI - Chest Pain General Chief Complaint: Chest Pain Stated Complaint: chest pain Time Seen by Provider: 06/16/23 13:52 Mode of arrival: ambulatory Limitations: no limitations History of Present Illness HPI narrative: 67-year-old female presents with concern for left-sided chest pain that radiates to the left arm and shoulder blade, originates under the left breast. She reports as a 5/10 in his been occurring for proximally 5 days. She denies any shortness of breath. She reports swelling in her ankles, however she says that is normal. She reports she is waiting for an appointment for a stress test because she had in my preop EKG last week that showed an [place] of indeterminate age. She has not had a stress test yet. She does have a history of mitral valve prolapse which she gets that she has occasional chest pain from. MD complaint: chest pain Related Data Home Medications Medication Instructions Recorded Confirmed fexofenadine 180 mg tablet 180 mg PO DAILY 10/17/19 06/16/23 (Anastasia Allergy) dicyclomine 10 mg capsule 10 mg PO BID 09/03/20 06/16/23 atenolol 50 mg tablet 50 mg PO BID 05/25/23 06/16/23 cyanocobalamin (vitamin B-12) 1,000 mcg PO DAILY 05/25/23 06/16/23 1,000 mcg capsule dapagliflozin propanediol 10 mg 10 mg PO QAM 05/25/23 06/16/23 tablet (Farxiga) dexlansoprazole 60 mg 60 mg PO DAILY 05/25/23 06/16/23 capsule,biphase delayed release fluticasone propionate 50 2 spray intranasal BID 05/25/23 06/16/23 mcg/actuation nasal spray,suspension guaifenesin 1,200 mg tablet, 1,200 mg PO BID 05/25/23 06/16/23 extended release 12 hr (Mucinex) ibuprofen 200 mg tablet (Advil) 200 mg PO QAM PRN Pain 05/25/23 06/16/23 meclizine 25 mg tablet 25 mg PO BID PRN Dizziness 05/25/23 06/16/23 semaglutide 7 mg tablet (Rybelsus) 7 mg PO QAM 05/25/23 06/16/23 Allergies Allergy/AdvReac Type Severity Reaction Status Date / Time Iodinated Contrast Media Allergy Unknown Hives Verified 06/16/23 14:04 iodine Allergy Unknown Hives Verified 06/16/23 14:04 celecoxib AdvReac Unknown STOMACH Verified 06/16/23 14:04 PAIN ciprofloxacin AdvReac Unknown STOMACH Verified 06/16/23 14:04 PAIN codeine AdvReac Unknown NAUSEA/VOMI Verified 06/16/23 14:04 TING latex AdvReac Unknown SKIN Verified 06/16/23 14:04 REDNESS/IRRITATION Sulfa (Sulfonamide AdvReac Unknown STOMACH Verified 06/16/23 14:04 Antibiotics) PAIN Review of Systems Review of Systems: CONSTITUTIONAL: Denies malaise, chills, sweats, or fever. CARDIOVASCULAR: Reports left chest pain. Denies palpitations. Reports bilateral lower extremity edema. RESPIRATORY: Denies cough or dyspnea. GASTROINTESTINAL: Denies abdominal pain, nausea, vomiting NEUROLOGIC: Denies numbness, weakness All systems reviewed & are unremarkable except as noted in HPI and below PMFSH Past Medical History Medical History Acute sinusitis with symptoms > 10 days Degenerative arthritis of knee, bilateral Diabetes Essential (primary) hypertension Gastroesophageal reflux disease Hemoglobin A1C between 7% and 9% indicating borderline diabetic control A1c = 7.4 on 01/27/21 Hyperlipidemia, unspecified Iron deficiency anemia Lumbar degenerative disc disease Obstructive sleep apnea (adult) (pediatric) Reactive airway disease without complication Surgical History Surgical History H/O: hysterectomy History of cholecystectomy Family History Family History Mother Family history of malignant melanoma Family history of lung cancer Family history of malignant neoplasm of brain Hypertension Grandparent Family history of lung cancer Family history of malignant neoplasm of bone Family history of malignant neoplasm of breast Family history of congestive heart failure Hypertension Father Acute myocardial infarct
--- NOTE | 2023-06-16 13:42 | ECG_ITS ---
Measurements Intervals [place] Rate: 63 P: 13 [place]: 175 QRS: -23 QRSD: 92 T: -19 QT: 409 QTc: 420 Interpretive Statements SINUS RHYTHM WITH SINUS ARRHYTHMIA DELAYED PRECORDIAL R/S TRANSITION LEFT VENTRICULAR HYPERTROPHY BORDERLINE ST-T WAVE ABNORMALITY- ANTEROLAT/INF LEADS BORDERLINE ECG COMPARED TO ECG 06/02/2023 11:46:38 SINUS ARRHYTHMIA NOW PRESENT Electronically Signed On 06-16-2023 14:12:30 FILL TECHNICIAN by Gaurang Koch D.O.
[2023-06-16 13:50] VITALS: BP 112/70; PULSE 64; RESP 20; TEMP 36.7; O2SAT 99
== END 2023-06-16 14:06 | disposition short-term general hospital (02) ==
PROVIDERS: Emergency Provider Nurse Practitioner; PCP Nurse Practitioner
DX: R07.9 Chest pain, unspecified (principal); E11.9 Type 2 diabetes mellitus without complications; I10 Essential (primary) hypertension; K21.9 Gastro-esophageal reflux disease without esophagitis; E78.5 Hyperlipidemia, unspecified; D50.9 Iron deficiency anemia, unspecified; M51.36 Other intervertebral disc degeneration, lumbar region; J45.909 Unspecified asthma, uncomplicated; M17.0 Bilateral primary osteoarthritis of knee; I25.2 Old myocardial infarction
CPT/HCPCS: 93005; 99213; G0463

== ENCOUNTER 2023-06-16 14:30 | Emergency (ER) | payer MEDICARE, SELFPAY ==
--- NOTE | ~2023-06-16 | XR_ITS ---
EXAMINATION: XR chest 2V DATE: 06/16/2023 15:05 INDICATION: Left chest pain. TECHNIQUE: Frontal and lateral views of the chest were obtained. COMPARISON: Chest 2 views 05/10/15 FINDINGS: There is no pneumonia, pleural effusion, or pneumothorax. The heart size is normal. Surgica l clips in the right upper quadrant are likely from cholecystectomy. IMPRESSION: 1. No acute cardiopulmonary disease. Reviewed, dictated and finalized at location E. L PAINTER
--- NOTE | 2023-06-16 14:32 | ECG_ITS ---
Measurements Intervals [place] Rate: 65 P: 31 [place]: 168 QRS: -21 QRSD: 84 T: -16 QT: 394 QTc: 410 Interpretive Statements SINUS RHYTHM DELAYED PRECORDIAL R/S TRANSITION LOW QRS VOLTAGE IN PRECORDIAL LEADS VOLTAGE CRITERIA FOR LVH NONSPECIFIC ST & T-WAVE ABNORMALITY- ANT/INF LEADS BASELINE ARTIFACT- I, III, AVR, AVL, AVF BORDERLINE ECG COMPARED TO ECG 06/16/2023 13:49:19 NO SIGNIFICANT CHANGES Electronically Signed On 06-16-2023 14:44:25 PELLETIZER OPERATOR by Gaurang Koch D.O.
[2023-06-16 14:38] VITALS: BP 128/75; PULSE 62; RESP 16; TEMP 36.8; O2SAT 97
--- NOTE | 2023-06-16 14:38 | ED.CHESTPAIN ---
HPI - Chest Pain General Chief Complaint: Chest Pain <Bronwyn Trujillo PA-C - Last Filed: 06/18/23 20:23> Stated Complaint: chest pain <Bronwyn Trujillo PA-C - Last Filed: 06/18/23 20:23> Time Seen by Provider: 06/16/23 14:38 <Bronwyn Trujillo PA-C - Last Filed: 06/18/23 20:23> Focused HPI: This is a 67 year old female that presents to the ER for chest pain. Reports the pain is sharp and pinching. Also reports heaviness. Reports the pain is constant. Reports a cough and swelling in her feet. She does have a stress test scheduled for next Wednesday. Denies fever, shortness of breath. GENERAL: Well-appearing, well-nourished, and in no acute distress. HEAD: Normocephalic, atraumatic. CHEST: Clear to auscultation. ?No respiratory distress. HEART: Regular rate and rhythm.? NEURO: ?Alert and oriented x3. Patient screened in triage and initial orders placed.? ?Additional care and disposition to be based upon?diagnostic testing and treatment. <Bronwyn Trujillo PA-C - Last Filed: 06/18/23 20:23> Focused HPI: This is a 67 year old female that presents to the ER for chest pain that has been ongoing for 5 days. Reports the pain is sharp and pinching. Also reports heaviness. Reports the pain is constant. Reports a cough and swelling in her feet. She does have a stress test scheduled for next Wednesday. Denies fever, chills, shortness of breath, nausea or vomiting. GENERAL: Well-appearing, well-nourished, and in no acute distress. HEAD: Normocephalic, atraumatic. CHEST: Clear to auscultation. ?No respiratory distress. HEART: Regular rate and rhythm.? NEURO: ?Alert and oriented x3. Patient screened in triage and initial orders placed.? ?Additional care and disposition to be based upon?diagnostic testing and treatment. <Laura Chen MD - Last Filed: 06/16/23 21:57> Related Data Home Medications: Home Medications Medication Instructions Recorded Confirmed fexofenadine 180 mg tablet 180 mg PO DAILY 10/17/19 06/16/23 (Anastasia Allergy) dicyclomine 10 mg capsule 10 mg PO BID 09/03/20 06/16/23 atenolol 50 mg tablet 50 mg PO BID 05/25/23 06/16/23 cyanocobalamin (vitamin B-12) 1,000 mcg PO DAILY 05/25/23 06/16/23 1,000 mcg capsule dapagliflozin propanediol 10 mg 10 mg PO QAM 05/25/23 06/16/23 tablet (Farxiga) dexlansoprazole 60 mg 60 mg PO DAILY 05/25/23 06/16/23 capsule,biphase delayed release fluticasone propionate 50 2 spray intranasal BID 05/25/23 06/16/23 mcg/actuation nasal spray,suspension guaifenesin 1,200 mg tablet, 1,200 mg PO BID 05/25/23 06/16/23 extended release 12 hr (Mucinex) ibuprofen 200 mg tablet (Advil) 200 mg PO QAM PRN Pain 05/25/23 06/16/23 meclizine 25 mg tablet 25 mg PO BID PRN Dizziness 05/25/23 06/16/23 semaglutide 7 mg tablet (Rybelsus) 7 mg PO QAM 05/25/23 06/16/23 <Bronwyn Trujillo PA-C - Last Filed: 06/18/23 20:23> Allergies/Adverse Reactions: Allergies Allergy/AdvReac Type Severity Reaction Status Date / Time Iodinated Contrast Media Allergy Unknown Hives Verified 06/16/23 14:04 iodine Allergy Unknown Hives Verified 06/16/23 14:04 celecoxib AdvReac Unknown STOMACH Verified 06/16/23 14:04 PAIN ciprofloxacin AdvReac Unknown STOMACH Verified 06/16/23 14:04 PAIN codeine AdvReac Unknown NAUSEA/VOMI Verified 06/16/23 14:04 TING latex AdvReac Unknown SKIN Verified 06/16/23 14:04 REDNESS/IRRITATION Sulfa (Sulfonamide AdvReac Unknown STOMACH Verified 06/16/23 14:04 Antibiotics) PAIN <Bronwyn Trujillo PA-C - Last Filed: 06/18/23 20:23> Review of Systems Review of Systems: All systems are reviewed and are negative unless stated otherwise in the HPI. <Laura Chen MD - Last Filed: 06/16/23 21:57> [facility] Past Medical History Medical History: Medical History Acute sinusitis with symptoms > 10 days Degenerative arthritis of knee, bilateral Diabetes Essential
[2023-06-16 14:57] LABS: Basophils Percent Auto 0.4 % (0.2-1.2); Eosinophils Absolute Auto 0.1 K/mm3 (0-0.3); Eosinophils Percent Auto 1.2 % (0-4.4); Hematocrit 42.2 % (37.0-47.0); Hemoglobin 13.5 g/dL (12.0-15.0); Immature Granulocyte Absolute 0.05 K/mm3 (0.00-0.031); Immature Granulocyte Percent A 0.5 % (0-0.5); Lymphocytes Absolute Auto 2.35 K/mm3 (0.9-3.2); Lymphocytes Percent Auto 23.5 % (18.3-44.2); Mean Corpuscular Hemoglobin 27.4 pg (26-34); Mean Corpuscular Volume 85.6 fl (80-100); Mean Platelet Volume 10.4 fl (7.4-10.4); Monocytes Absolute Auto 0.5 K/mm3 (0.1-0.6); Neutrophils Percent Auto 69.4 % (45.5-73.1); Platelet Count Result 208 k/mm3 (150-375); Red Blood Count 4.93 M/mm3 (4.2-5.4); Red Cell Distribution Width 13.2 % (11.5-14.5)
[2023-06-16 15:07] LABS: Prothrombin Time 13.3 Seconds (11.1-14.7)
[2023-06-16 15:08] LABS: Partial Thromboplastin Time 27.1 SECONDS (22.3-36.8)
[2023-06-16 15:09] LABS: Alanine Aminotransferase 35 U/L (6-35); Albumin Level 4.4 g/dL (3.5-5.1); Alkaline Phosphatase 83 U/L (38-126); Anion Gap 8 mmol/L (8-16); Aspartate Amino Transferase 29 U/L (14-36); Bilirubin,Total 0.6 mg/dL (0.2-1.3); Blood Urea Nitrogen 17 mg/dL (7-17); Calcium 9.3 mg/dL (8.4-10.2); Carbon Dioxide 24 mmol/L (22-30); Chloride 104 mmol/L (98-107); Estimated CRCL calculation 49 ml/min; Estimated Glomerular Filt Rate 56; Glucose 139 mg/dL (65-110); Lipase 141 U/L (23-300); Potassium 4.6 mmol/L (3.4-5.0); Sodium 136 mmol/L (137-145)
[2023-06-16 15:21] LABS: NT Pro B Type Natriuretic Pept 200 pg/mL (19.9-100); Troponin I < 0.012 ng/mL (0.000-0.034)
[2023-06-16 15:37] LABS: Influenza A QL RT-PCR Negative (Negative); Influenza B QL RT-PCR Negative (Negative); RSV RNA, RT-PCR Negative (Negative); SARS-CoV-2 RNA PCR Negative (Negative)
[2023-06-16 17:04] VITALS: BP 127/55; PULSE 62; RESP 18; TEMP 36.6; O2SAT 98
[2023-06-16 20:47] VITALS: BP 147/65; PULSE 66; RESP 17; O2SAT 100
--- NOTE | 2023-06-16 20:52 | ECG_ITS ---
Measurements Intervals [place] Rate: 64 P: -5 [place]: 163 QRS: -23 QRSD: 86 T: -12 QT: 417 QTc: 431 Interpretive Statements SINUS RHYTHM DELAYED PRECORDIAL R/S TRANSITION LOW QRS VOLTAGE IN PRECORDIAL LEADS VOLTAGE CRITERIA FOR LVH BORDERLINE ST-T WAVE ABNORMALITY- ANT/INF LEADS BASELINE ARTIFACT- I, II, AVR BORDERLINE ECG COMPARED TO ECG 06/16/2023 14:36:28 NO SIGNIFICANT CHANGES Electronically Signed On 06-17-2023 6:24:53 DERRICK BARGE OPERATOR by Gaurang Koch D.O.
[2023-06-16 20:53] LABS: Glucose Point of Care 125 mg/dl (65-105)
[2023-06-16 21:01] VITALS: BP 151/73; PULSE 62; RESP 12; O2SAT 99
[2023-06-16 21:13] LABS: Troponin I < 0.012 ng/mL (0.000-0.034)
[2023-06-16 21:28] VITALS: PULSE 64
== END 2023-06-16 21:53 | disposition home or self-care (01) ==
PROVIDERS: Physician Assistant; Student in an Organized Health Care Education/Training Program; Emergency Provider Emergency Medicine; PCP Nurse Practitioner
DX: R07.9 Chest pain, unspecified (principal); Z20.822 Contact with and (suspected) exposure to COVID-19; I10 Essential (primary) hypertension; J45.909 Unspecified asthma, uncomplicated; E78.5 Hyperlipidemia, unspecified; E11.9 Type 2 diabetes mellitus without complications; D50.9 Iron deficiency anemia, unspecified; G47.33 Obstructive sleep apnea (adult) (pediatric); K21.9 Gastro-esophageal reflux disease without esophagitis; M17.0 Bilateral primary osteoarthritis of knee; M51.36 Other intervertebral disc degeneration, lumbar region; Z90.710 Acquired absence of both cervix and uterus; Z90.49 Acquired absence of other specified parts of digestive tract; R94.31 Abnormal electrocardiogram [ECG] [EKG]; Z79.84 Long term (current) use of oral hypoglycemic drugs
CPT/HCPCS: 36415; 71046; 80053; 82948; 83690; 83880; 84484; 85025; 85610; 85730; 87637; 93005; 99213; 99284; G0463

== ENCOUNTER 2023-06-23 09:24 | Outpatient (CLI) | payer MEDICARE, MEDICAID, SELFPAY ==
--- NOTE | ~2023-06-23 | NM_ITS ---
EXAMINATION: NM ed stress w perfusion DATE: 06/23/2023 11:33 INDICATION: Abnormal electrocardiogram TECHNIQUE: Rest images were obtained following intravenous administration of 9.8 mCi Tc99m tetrofosmi n (Myoview). The patient was infused intravenously with Lexiscan (Regadenoson). Then, 81.6 mCi Tc99m tetrofosmin (Myoview) was administered intravenously, and stress images were obtained. Data was recon structed into short axis and horizontal and vertical long axis SPECT images. Gated SPECT images were also obtained. COMPARISON: None. FINDINGS: There is no definite reversible or fixed perfusion abnormality to suggest ischemia or infar ction. There is normal left ventricular chamber size, wall motion and ejection fraction. Left ventr icular ejection fraction measures >70%. IMPRESSION: 1. Normal myocardial perfusion at rest and during stress. 2. Left ventricular ejection fraction measuring >70%. Reviewed, dictated and finalized at location B.
--- NOTE | 2023-06-23 09:42 | EST_ITS ---
Patient Info Name: Fatuma Cash Age: 67 years : 1955 Gender: Female Ht: 63 in Wt: 170 lbs BSA: 1.88 m2 HR: 61 bpm BP: 113 / 73 mmHg Heart Rhythm: Sinus Rhythm Exam Date: 06/23/2023 10:24 AM Exam Location: [facility] Patient Status: Outpatient Admit Date: 06/23/2023 Staff Ordering Physician: John Wu APRN Attending Provider: John uW APRN Exercise Technologist: Kathleen Dacosta CT Exercise Physician: Gaurang Koch DO Exam Type: CA stress ed w NM Study Info Indications Z01.810 - Encounter for preprocedural cardiovascular examination R94.31 - Abnormal electrocardiogram ECG EKG A regadenoson stress test was performed. Summary 1. 1. Negative lexiscan stress test for ischemic ST changes by ECG criteria. 2. 2. Stable hemodynamics throughout the test. 3. 3. Nuclear scan to follow and will be reported separately. Please correlate with it. 4. 4. Patient informed of the above results. Protocol: Lexiscan Stress ECG Details Stage: REST Duration (min): 2 min : 3 sec HR (bpm): 60 SBP (mmHg): 113 DBP (mmHg): 73 Stage: REST Duration (min): 7 min : 33 sec HR (bpm): 62 SBP (mmHg): 113 DBP (mmHg): 73 Stage: STAGE 1 Duration (min): 1 min : 0 sec HR (bpm): 72 SBP (mmHg): 108 DBP (mmHg): 68 Stage: RECOVERY Duration (min): 1 min : 0 sec HR (bpm): 84 SBP (mmHg): 108 DBP (mmHg): 68 Stage: RECOVERY Duration (min): 2 min : 0 sec HR (bpm): 81 SBP (mmHg): 108 DBP (mmHg): 68 Stage: RECOVERY Duration (min): 2 min : 57 sec HR (bpm): 80 SBP (mmHg): 118 DBP (mmHg): 68 Rest HR: 62 bpm Peak HR: 84 bpm Rest Sys BP: 113 mmHg Peak Sys BP: 118 mmHg Max Pred HR: 155 bpm % Max Pred HR: 54 % Target HR: 132 bpm Max RPP: 9,912 bpm*mmHg Termination Reason: Completed protocol Cardiac Symptoms: Shortness of breath Total Time: 1 min : 0 sec Rest Carr BP: 73 mmHg Peak Carr BP: 68 mmHg Total Dose: 0.4 mg Resting ECG Sinus rhythm, borderline ST-T wave in ant/inf leads. Stress ECG No ST changes. Arrhythmias None. Report Signatures
[2023-06-23 12:18] LABS: Cholesterol 125 mg/dL (0-200); HDL Direct 41 mg/dL; Triglycerides 199 mg/dL (<150)
[2023-06-23 12:29] LABS: LDL Cholesterol Direct 67 mg/dL
[2023-06-23 13:21] LABS: Hemoglobin A1C 7.8 % (<5.7)
== END 2023-06-23 09:25 | disposition home or self-care (01) ==
PROVIDERS: PCP Nurse Practitioner; Visit Provider Nurse Practitioner
DX: R94.31 Abnormal electrocardiogram [ECG] [EKG] (principal); E78.5 Hyperlipidemia, unspecified; E11.9 Type 2 diabetes mellitus without complications
CPT/HCPCS: 36415; 78452; 80061; 83036; 93017; A9502; J2785

== ENCOUNTER 2023-06-24 11:00 | Outpatient (CLI) | payer MEDICARE, MEDICAID, SELFPAY | END 2023-06-24 11:01 | disposition home or self-care (01) | LOC: ANHAUDASC 11:01 | PROVIDERS: PCP Nurse Practitioner; Visit Provider Nurse Practitioner | DX: H90.3 Sensorineural hearing loss, bilateral (principal) | CPT/HCPCS: 92557; 92567 ==

== ENCOUNTER 2023-09-30 12:17 | Outpatient (CLI) | payer MEDICARE, SELFPAY ==
[2023-09-30 12:50] LABS: Hematocrit 40.6 % (37.0-47.0); Hemoglobin 12.8 g/dL (12.0-15.0)
[2023-09-30 13:01] LABS: Anion Gap 9 mmol/L (4-12); Blood Urea Nitrogen 17 mg/dL (7-17); Calcium 9.1 mg/dL (8.4-10.2); Carbon Dioxide 26 mmol/L (22-30); Chloride 102 mmol/L (98-107); Estimated Glomerular Filt Rate 55; Glucose 300 mg/dL (65-110); Potassium 4.4 mmol/L (3.4-5.0); Sodium 137 mmol/L (137-145)
== END 2023-09-30 12:18 | disposition home or self-care (01) ==
LOC: ANHSURGERY 12:22
PROVIDERS: Anesthesiology; PCP Nurse Practitioner; Visit Provider Otolaryngology
DX: D64.9 Anemia, unspecified (principal); E11.9 Type 2 diabetes mellitus without complications; Z01.818 Encounter for other preprocedural examination
CPT/HCPCS: 36415; 80048; 85014; 85018

== ENCOUNTER 2023-12-02 10:37 | Outpatient (CLI) | payer MEDICARE, SELFPAY ==
[2023-12-02 11:53] LABS: Alanine Aminotransferase 34 U/L (6-35); Albumin Level 4.3 g/dL (3.5-5.1); Alkaline Phosphatase 74 U/L (38-126); Anion Gap 9 mmol/L (4-12); Aspartate Amino Transferase 31 U/L (14-36); Bilirubin,Total 0.5 mg/dL (0.2-1.3); Blood Urea Nitrogen 21 mg/dL (7-17); Calcium 9.1 mg/dL (8.4-10.2); Carbon Dioxide 27 mmol/L (22-30); Chloride 100 mmol/L (98-107); Cholesterol 167 mg/dL (0-200); Estimated Glomerular Filt Rate 55; Glucose 161 mg/dL (65-110); HDL Direct 43 mg/dL; Potassium 4.4 mmol/L (3.4-5.0); Sodium 136 mmol/L (137-145); Triglycerides 237 mg/dL (<150)
[2023-12-02 12:03] LABS: Hemoglobin A1C 8.1 % (<5.7)
[2023-12-02 12:04] LABS: LDL Cholesterol Direct 83 mg/dL
== END 2023-12-02 10:38 | disposition home or self-care (01) ==
PROVIDERS: PCP Nurse Practitioner; Visit Provider Nurse Practitioner
DX: E78.5 Hyperlipidemia, unspecified (principal); E11.9 Type 2 diabetes mellitus without complications
CPT/HCPCS: 36415; 80053; 80061; 83036

== ENCOUNTER 2023-12-23 12:01 | Outpatient (CLI) | payer MEDICARE, SELFPAY ==
[2023-12-23 12:34] LABS: Add Urine Microscopic? YES; Appearance Urine Cloudy (Clear); Bacteria Urine None Seen /hpf; Bilirubin Urine Negative (Negative); Blood Urine 3+ (Negative); Color Urine Yellow (Yellow); Glucose Urine UA 3+ mg/dL (Negative); Ketones Urine Negative (Negative); Leukocyte Esterase Ur 1+ LEU/UL (Negative); Nitrate Urine Negative (Negative); Non Pathogenic Casts 0-2; Protein Urine 1+ mg/dL (Negative); RBC Urine 51-100 /hpf (0-2); Specific Grav Ur 1.033 (1.001-1.035); Squamous Epithelial Cell Urine None Seen /hpf (Few); Urobilinogen Urine 0.2 mg/dL (<2.0); WBC Urine >100 /hpf (0-3); pH Urine 5.5 (5.0-9.0)
== END 2023-12-23 12:02 | disposition home or self-care (01) ==
LOC: ANHLAB 12:03
PROVIDERS: PCP Nurse Practitioner; Visit Provider Nurse Practitioner
DX: R39.9 Unspecified symptoms and signs involving the genitourinary system (principal)
CPT/HCPCS: 81001; 87077; 87086; 87088; 87186